=== PATIENT | male | born 1980 | race Caucasian/White ===

== ENCOUNTER 2021-12-21 15:47 | Emergency (ER) | payer SELFPAY ==
[~2021-12-21] VITALS: Ht 177.8 cm; Wt 68.0 kg
[2021-12-21 15:49] VITALS: BP 125/80
[2021-12-21] MEDS ORDERED: CHLORPROMAZINE HCL 25 MG TABLET PO ONE (16:30)
[2021-12-21] MEDS ORDERED: ARIPIPRAZOLE 5MG TABLET PO ONE (16:30)
[2021-12-21] MEDS ORDERED: TH25 MT (16:32)
[2021-12-21] MEDS ORDERED: ABIL10 MT (16:32)
== END 2021-12-21 17:47 | disposition home or self-care (01) ==
LOC: ER 15:47
DX: Z76.0 Encounter for issue of repeat prescription (principal); F20.9 Schizophrenia, unspecified; F31.9 Bipolar disorder, unspecified; Z88.0 Allergy status to penicillin
CPT/HCPCS: 99283; Q0161